=== PATIENT | male | born 1950 | race Two or more races ===

== ENCOUNTER 2023-08-20 14:39 | Emergency (ER) | payer OTHER, SELFPAY ==
--- NOTE | ~2023-08-20 | CT_ITS ---
EXAMINATION: CT HEAD WITHOUT CONTRAST CLINICAL INFORMATION: Dizziness. Evaluate for bleed or stroke. COMPARISON: None available. TECHNIQUE: Contiguous axial imaging was performed from the skull base to vertex without intravenous administration of contrast. This CT examination was performed using dose optimization techniques as appropriate, variously including the following: *Automated exposure control *Adjustment of mA and/or kV according to patient size (this includes techniques or standardized protocols for targeted exams where dose is matched to indication/reason for exam; i.e. extremities or head) *Use of iterative reconstruction technique DLP: 729 mGy-cm FINDINGS: No intracranial hemorrhage, extra-axial surface collection, focal mass effect or midline shift. Mild parenchymal volume loss with commensurate prominence of ventricles and sulci; no hydrocephalus. Atherosclerotic calcification of cavernous carotid arteries. Mild small vessel ischemic changes within supratentorial white matter. There is hypoattenuation from chronic encephalomalacia with loss of hoffman-white differentiation at the superior right parietal lobe. No evidence of an acute major vascular territory infarction. Also, there appears to be an old lacunar infarction of the left tunde. No calvarial fracture. The paranasal sinuses and mastoid air cells are well aerated. The temporomandibular joints, orbits and globes are unremarkable. The reticulation of fat within the scalp has the appearance of edema. A small focus of tissue thickening in the parietal region of the scalp could represent scarring or small hematoma secondary to prior trauma. CT/CT head/brain wo IV con IMPRESSION: * No evidence of intracranial hemorrhage or other acute intracranial pathology. * There is an old infarct of the right parietal lobe and lacunar infarct of the tunde. No evidence of an acute major vascular territory infarction.
[2023-08-20 14:48] VITALS: BP 200/98; PULSE 68; O2SAT 98
[2023-08-20 14:51] VITALS: BP 195/81; PULSE 70; RESP 14; TEMP 36.6; O2SAT 97; BMI 33.5
--- NOTE | 2023-08-20 15:58 | ECG_ITS ---
Test Reason : FALL Blood Pressure : / mmHG Vent. Rate : 066 BPM Atrial Rate : 066 BPM P-R Int : 188 ms QRS Dur : 094 ms QT Int : 440 ms P-R-T Axes : 047 -24 110 degrees QTc Int : 461 ms Normal sinus rhythm Minimal voltage criteria for LVH, may be normal variant ( Frantz product ) Inferior infarct , age undetermined T wave abnormality, consider lateral ischemia Abnormal ECG No previous ECGs available Referred By: Jose Luis Subramanian Electronically Signed By:DOMINGUEZ LINARES MD
[2023-08-20] MEDS: Meclizine HCl 25 MG TABLET PO (16:21)
[2023-08-20 17:20] VITALS: BP 183/86; PULSE 64; RESP 16; TEMP 36.8; O2SAT 97
[2023-08-20 17:42] VITALS: BP 138/82; PULSE 67; RESP 14; TEMP 36.8; O2SAT 98
[2023-08-20 17:43] LABS: MANUAL DIFF FLAG NO
--- NOTE | 2023-08-20 17:43 | ED.DIZZY ---
HPI - Dizziness General Chief Complaint: Fall Stated Complaint: FALL WITH HEAD STRIKE + THINNERS Time Seen by Provider: 08/20/23 14:48 Source: patient and EMS Mode of arrival: EMS Limitations: no limitations History of Present Illness HPI Narrative: 72-year-old male with history diabetes mellitus, hypertension, CHF, stroke (1 year prior with right hand and leg weakness) who presents emergency department for evaluation of 3 days of dizziness. Patient describes the dizziness as a room spinning sensation which is worse with position change he is also complaining of a headache which she states is intermittent. He points to his frontal area of his head when he describes the pain, the pain is a pressure-like pain which will last 10-15 minutes then go away. This morning. He states that he get out of bed, felt dizzy and fell and struck the left side of his head on the floor he denied loss of consciousness He denied fever. He states he has occasional chills. He states he has occasional cough. He denied chest pain, shortness of breath, nausea, vomiting, diarrhea, dark tarry stools or bloody stools Related Data Previous Rx's Medication Instructions Recorded meclizine 25 mg tablet (Dramamine 25 mg PO TID PRN dizziness #20 tabs 08/20/23 Less Drowsy) Allergies Allergy/AdvReac Type Severity Reaction Status Date / Time No Known Allergies Allergy Verified 08/20/23 15:56 Review of Systems Review of Systems: Yes all other systems are reviewed and are negative [facility] Past Medical History Attestation statement: The following information was validated with the patient. [facility] Narrative: Past medical history: Diabetes mellitus, hypertension, CHF, stroke when your prior with residual right hand and right leg weakness. Social history: Patient is a former smoker and stop smoking 34 years ago. He smoked for 30 years. States he stop drinking alcohol 3 years prior. Patient does not use any drugs but he is a former heroin, marijuana and cocaine user. Onset Date is defined in the Problem List Problems that require an onset date and time if occurred within 24 hrs of arrival to the ED Aortic Dissection and Rupture; Neurologic impairment; Cardiopulmonary Arrest; Endotracheal Intubation; Insertion or Replacement of Mechanical Circulatory Assist Device Social History Social History Advance Directives: No Advance Directives Information Provided: No Physical Exam Vital Signs: Vital Signs: Last Vital Signs Temp 98.2 F 08/20/23 17:42 Pulse 67 08/20/23 17:42 Resp 14 08/20/23 17:42 BP 138/82 08/20/23 17:42 Pulse Ox 98 08/20/23 17:42 O2 Del Method Room Air 08/20/23 17:42 BMI result Body Mass Index 33.5 Vital signs were normal Exam: General: Awake, alert in no distress Head: Normocephalic, atraumatic EENT: PERRL, Lids normal, sclera normal, conjunctiva normal, nose normal , ears normal, throat without erythema or exudates, lateral nystagmus Neck: Supple, no adenopathy, no trachea midline or C-spine tenderness Lung: breath sounds symmetric, no wheezing, rales or rhonchi Chest: symmetric movement, nontender Heart: regular rate and rhythm, normal S1, S2 no murmurs or rubs Abdomen: soft, non-tender, nondistended, normal bowel sounds Back: no vertebral tenderness, no CVAT Extremities: no deformities, moves all extremities symmetrically Skin: no rashes, no lesion, normal color and warmth Neuro: General: Awake, alert, oriented, normal speech, Cranial nerves: Cranial nerves 2-12 intact Strength:, patient has normal upper extremity strength and normal left lower extremity strength. He can only move right lower extremity minimal against gravity-this is old secondary to his previous stroke Cerebellar: Normal rxvtho-of-pfse-to-finger, normal rapid finger movement, heel to lobo not testable on right secondary to weakness, normal on left Psych: Pleasant, cooperative Medications Administered Discontinued Medications Generic Name Dose Route Start Last Admin Trade Name Freq PRN Reason Stop Dose Admin Meclizine HCl 25 mg 08/20/23 15:58 08/20/23 16:21 Meclizine Hcl 25 Mg Tablet PO 08/20/23 15:59 25 mg ONCE STA Administration Medical Decision Making Medical Decision Making MDM Narrative: 72-year-old male with history diabetes mellitus, hypertension, CHF, stroke (1 year prior with right hand and leg weakness) who presents emergency department for evaluation of 3 days of dizziness. Patient describes the dizziness as a room spinning sensation which is worse with position change he is also complaining of a headache which she states is intermittent. Patient did fall and strike his head this morning getting out of bed this morning. Patient's vital signs were unremarkable. Physical examination did reveal lateral nystagmus and dizziness with position change. Patient has residual right lower extremity weakness secondary to previous stroke otherwise exam was unremarkable. 18:08 My interpretation patient's laboratory evaluation as follows: CBC was normal. CMP was unremarkable except for an elevated glucose of 253. PT/INR were elevated 31.[address] scan is consistent with the patient's previous strokes Differential Diagnosis Differential Diagnoses: The differential diagnosis associated with the presentation includes Differential diagnosis includes was not limited to cerebellar stroke, vertigo, electrolyte abnormalities, anemia Admission/Observation Consideration of admission/observation: Escalation of care including admission/observation considered Lab Data MDM Lab Attestation statement: I reviewed the patient's lab results. 08/20/23 17:38 08/20/23 17:29 Labs: Lab Results 08/20/23 08/20/23 Range/Units 17:29 17:38 WBC 7.6 (4.8-10.8) X10*3/uL RBC 5.36 (4.60-5.80) X10*6/uL Hgb 14.8 (14.0-18.0) g/dl Hct 45.6 (42.0-52.0) % MCV 85.1 (80.0-98.0) fL MCH 27.6 (27.0-33.0) pg MCHC 32.5 (31.0-36.0) g/dl RDW 14.0 (11.0-16.0) % Plt Count 251 (160-400) X10*3/uL MPV 11.4 (9.4-12.4) fL Immature Gran % (Auto) 0.4 (0.0-0.4) % Neut % (Auto) 75.6 H (45-73) % Lymph % (Auto) 12.5 L (20-40) % Glenn % (Auto) 8.8 (2-11) % Eos % (Auto) 2.4 (0-4) % Baso % (Auto) 0.3 (0-2) % Lymph # (Auto) 1.0 L (1.2-4.9) X10*3/uL Glenn # (Auto) 0.7 (0.1-1.2) X10*3/uL Eos # (Auto) 0.2 (0.0-0.4) X10*3/uL Baso # (Auto) 0.0 (0.0-0.2) X10*3/uL Abs Immat Gran (auto) 0.03 (0.00-0.03) X10*3/uL Absolute Neuts (auto) 5.8 (2.0-8.3) x10*3/uL Absolute Nucleated RBC 0.000 (0.0-0.012) X10*3/uL Nucleated RBC % (auto) 0.0 (0.0-0.2) /100WBC PT 31.3 H (11.1-13.3) SEC INR 2.6 H (0.9-1.1) Sodium 136 (135-145) mmol/L Potassium 4.2 (3.3-5.1) mmol/L Chloride 105 (96-108) mmol/L Carbon Dioxide 22 (22-29) mmol/L Anion Gap 13 (12-20) BUN 18 H (9-16) mg/dL Creatinine 0.86 (0.5-1.4) mg/dL Estim Creat Clear Calc 86.2 Estimated GFR > 60 Random Glucose 253 H (60-115) mg/dL Calcium 9.1 (8.4-10.2) mg/dL Total Bilirubin 0.3 (0.0-1.0) mg/dL AST 17 (5-37) U/L ALT 18 (0-40) U/L Alkaline Phosphatase 79 (39-117) U/L Total Protein 7.0 (6.5-8.0) g/dL Albumin 3.6 (3.5-5.0) g/dL Lipase 18 (8-78) U/L Radiology Impression Discussion of test interpretation with radiology: I have reviewed the radiologist's reading. Radiologist Impression: CT head/brain wo IV con IMPRESSION: * No evidence of intracranial hemorrhage or other acute intracranial pathology. * There is an old infarct of the right parietal lobe and lacunar infarct of the tunde. No evidence of an acute major vascular territory infarction. Dictated By: Freddy Thomas MD Discharge Plan Discharge Clinical Impression: Vertigo Patient Disposition: Home, Self-Care Instructions: Vertigo (ED) Additional Instructions: The CT scan of your brain did not reveal any new stroke, bleeding in the brain or large tumors to explain your symptoms Your blood work was unremarkable except for an elevated glucose, continue to take your diabetes medicines as prescribed by your doctor Your symptoms are consistent with positional vertigo Take meclizine 25 mg pills, 1 pill 3 times a day for the next 3 days for dizziness then as needed for dizziness. ?This medication will make you sleepy. ?Do not drive or work while taking this medication. Follow-up with your doctor in 2 days. Please return to the emergency department if your symptoms get worse or if you develop any symptoms that are concerning to you. Prescriptions: New meclizine [Dramamine Less Drowsy] 25 mg tablet 25 mg PO TID PRN (Reason: dizziness) Qty: 20 0RF
--- NOTE | 2023-08-20 17:43 | MHC.EDTECH ---
PATIENT BLOOD DRAWN AND SENT TO ,VITALS TAKEN ,PATIENT FAMILY MEMBER AT BEDSIDE .
[2023-08-20 17:52] LABS: Basophils Percent Auto 0.3 % (0-2); Eosinophils Absolute Auto 0.2 X10*3/uL (0.0-0.4); Eosinophils Percent Auto 2.4 % (0-4); Hematocrit 45.6 % (42.0-52.0); Hemoglobin 14.8 g/dl (14.0-18.0); Imm Gran Abs Auto 0.03 X10*3/uL (0.00-0.03); Imm Gran Pct Auto 0.4 % (0.0-0.4); Lymphocytes Percent Auto 12.5 % (20-40); Mean Corpuscular HGB Conc 32.5 g/dl (31.0-36.0); Mean Corpuscular Hemoglobin 27.6 pg (27.0-33.0); Mean Corpuscular Volume 85.1 fL (80.0-98.0); Mean Platelet Volume 11.4 fL (9.4-12.4); Monocytes Absolute Auto 0.7 X10*3/uL (0.1-1.2); Monocytes Percent Auto 8.8 % (2-11); Neutrophils Absolute Auto 5.8 x10*3/uL (2.0-8.3); Neutrophils Percent Auto 75.6 % (45-73); Platelet Count 251 X10*3/uL (160-400); Red Blood Count 5.36 X10*6/uL (4.60-5.80); White Blood Count 7.6 X10*3/uL (4.8-10.8)
[2023-08-20 17:56] LABS: INTERNATIONAL NORM RATIO 2.6 (0.9-1.1); Prothrombin Time 31.3 SEC (11.1-13.3)
[2023-08-20 17:57] LABS: Alanine Aminotransferase 18 U/L (0-40); Albumin Level 3.6 g/dL (3.5-5.0); Alkaline Phosphatase 79 U/L (39-117); Anion Gap 13 (12-20); Aspartate Amino Transferase 17 U/L (5-37); Bilirubin Total 0.3 mg/dL (0.0-1.0); Blood Urea Nitrogen 18 mg/dL (9-16); Calcium 9.1 mg/dL (8.4-10.2); Carbon Dioxide 22 mmol/L (22-29); Chloride 105 mmol/L (96-108); Creatinine Clr Calc Pharmacy 86.2; Estimated Glomerular Filt Rate > 60; Glucose Random 253 mg/dL (60-115); Lipase 18 U/L (8-78); Potassium 4.2 mmol/L (3.3-5.1); Sodium 136 mmol/L (135-145)
[2023-08-20 18:08] LABS: Troponin-I High Sensitivity 13.3 ng/L (<3.5-35.0)
== END 2023-08-20 19:18 | disposition home or self-care (01) ==
PROVIDERS: Emergency Provider Emergency Medicine Emergency Medical Services
DX: R42 Dizziness and giddiness (principal); R94.31 Abnormal electrocardiogram [ECG] [EKG]; R51.9 Headache, unspecified; Z79.899 Other long term (current) drug therapy
CPT/HCPCS: 36415; 70450; 80053; 83690; 84484; 85025; 85610; 93005; 99284

== ENCOUNTER → 2023-08-20 15:58 | Outpatient (BNV) | payer OTHER, SELFPAY | PROVIDERS: Emergency Provider Emergency Medicine Emergency Medical Services; Visit Provider Internal Medicine Cardiovascular Disease | DX: R94.31 Abnormal electrocardiogram [ECG] [EKG] (principal) | CPT/HCPCS: 93010 ==

== ENCOUNTER 2024-08-03 03:05 | Emergency (ER) | payer OTHER, SELFPAY ==
--- NOTE | 2024-08-03 | ECG_ITS ---
Test Reason : WEAKNESS Blood Pressure : / mmHG Vent. Rate : 085 BPM Atrial Rate : 085 BPM P-R Int : 172 ms QRS Dur : 094 ms QT Int : 386 ms P-R-T Axes : 046 -43 093 degrees QTc Int : 459 ms Normal sinus rhythm Left axis deviation Inferior infarct , age undetermined Possible Anterior infarct , age undetermined T wave abnormality, consider lateral ischemia Abnormal ECG No previous ECGs available Referred By: Braxton Balderas Electronically Signed By:Yoni Butt
--- NOTE | ~2024-08-03 | CT_ITS ---
EXAMINATION: CTA NECK WITH CONTRAST (STROKE) CTA BRAIN WITH CONTRAST (STROKE) CLINICAL INFORMATION: Suspect acute stroke. Assess for major vessel occlusion. Please call report. COMPARISON: None available. TECHNIQUE: CTA of the head and neck was performed in the axial plane from the mediastinum to the skull vertex using 75 mL Omnipaque 350 intravenous contrast. Additional reformatted multiplanar images including maximum intensity projection MIP images are generated on the CT workstation. This CT examination was performed using dose optimization techniques as appropriate, variously including the following: *Automated exposure control *Adjustment of mA and/or kV according to patient size (this includes techniques or standardized protocols for targeted exams where dose is matched to indication/reason for exam; i.e. extremities or head) *Use of iterative reconstruction technique DLP: 1565 mGy-cm FINDINGS: The degree of stenosis determined by criteria similar to NASCET. Brain: There is mild cerebral volume loss with prominence of the lateral and the third ventricles. The cortical sulci are widened appropriately. The fourth ventricle and basal cisterns are normally outlined. There is mild bilateral periventricular and central white matter diminished attenuation. 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 There is no acute territorial defect, hemorrhage or midline shift. The extra-axial spaces are unremarkable. Calvarium/scalp: Intact. Maxillofacial sinuses and mastoids: Clear as visualized. Chest CTA: There is atherosclerotic plaque of the aortic arch. Bovine arch is noted. The aortic arch branch vessels are patent. The visualized upper lung [place] are clear. Neck CTA: The common carotid artery is patent. There is atherosclerotic plaque at the carotid bifurcation without significant narrowing. The internal and external carotid arteries are patent. The vertebral arteries are codominant and both patent. Brain CTA: There is atherosclerotic plaque of the distal vertebral arteries with focal areas of narrowing at both distal vertebral arteries. There is also atherosclerotic plaque of the basilar artery branches and a focal area of narrowing within the right superior cerebellar artery. The cortical following There is atherosclerotic plaque of both intracranial internal carotid arteries with mild narrowing at the right. Focal narrowing distal M1 right middle cerebral artery. There is good flow beyond the point of narrowing distal M1 posterior cerebral artery on the right. There is no evidence for aneurysm, The left middle cerebral artery and anterior cerebral arteries are patent. . CT/CT angio head neck STROKE IMPRESSION: 1. No acute intracranial pathology. 2. No evidence for aneurysm or vascular malformation. 3. Atherosclerotic plaque of both carotid bifurcations without significant narrowing. 4. Atherosclerotic plaque of the distal vertebral arteries with focal areas of narrowing. 5. There is also atherosclerotic plaque of the basilar artery branches with focal areas of narrowing. 6. Focal narrowing distal M1 right middle cerebral artery. 7. There is good flow beyond the point of narrowing. Electronically signed by: Star Lau MD 08/03/2024 06:41 AM [facility] COLLIER
--- NOTE | ~2024-08-03 | CT_ITS ---
EXAMINATION: CT HEAD WITHOUT CONTRAST CLINICAL INFORMATION: Right-sided weakness. COMPARISON: August 20, 2023 TECHNIQUE: Contiguous axial imaging was performed from the skull base to vertex without intravenous administration of contrast. This CT examination was performed using dose optimization techniques as appropriate, variously including the following: *Automated exposure control *Adjustment of mA and/or kV according to patient size (this includes techniques or standardized protocols for targeted exams where dose is matched to indication/reason for exam; i.e. extremities or head) *Use of iterative reconstruction technique DLP: 780 mGy-cm FINDINGS: There is cerebral volume loss with prominence of the lateral and the third ventricles. The cortical sulci are widened appropriately. The fourth ventricle and basal cisterns are normally outlined. There is mild bilateral periventricular and central white matter diminished attenuation. 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 There is an old left pontine lacunar infarct There is no acute territorial defect, hemorrhage or midline shift. The extra-axial spaces are unremarkable. Calvarium/scalp: Intact. Maxillofacial sinuses and mastoids: Clear as visualized. CT/CT head/brain wo IV con IMPRESSION: 1. No acute intracranial process seen. 2. 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 3. Mild cerebral volume loss with chronic small vessel ischemic changes. Electronically signed by: Star Lau MD 08/03/2024 05:09 AM O[facility]
[2024-08-03 03:11] VITALS: BP 144/77; BP 210/86; PULSE 58; PULSE 86; RESP 18; TEMP 37.2; O2SAT 92; O2SAT 95; BMI 31.1
--- NOTE | 2024-08-03 03:16 | ED_ITS ---
HPI - General Adult General Chief complaint: Weakness Stated complaint: weakness, hyperglycemic, hypertensive, polyuria Time Seen by Provider: 08/03/24 03:16 Source: patient Mode of arrival: EMS Limitations: no limitations History of Present Illness ED Provider: HPI narrative: Patient is 73 years old with history of diabetes hypertension CHF CVA with residual right-sided weakness comes here for increased weakness in the right side patient has had multiple strokes in the past few years on aspirin uses wheelchair unable to ambulate without assistance was awake at 01:30 a tried to get to the chair to go to bathroom unable to stand up and felt more weak on the right side and slumped down no headache no other significant injuries no fever no chills no upper respiratory symptoms patient feels his right side is more weak than before Related Data Previous Rx's ?Medication ?Instructions ?Recorded meclizine 25 mg tablet (Dramamine 25 mg PO TID PRN dizziness #20 tabs 08/20/23 Less Drowsy) clopidogrel 75 mg tablet (Plavix) 75 mg PO DAILY #30 tabs 08/03/24 Allergies Allergy/AdvReac Type Severity Reaction Status Date / Time No Known Allergies Allergy Verified 08/03/24 03:16 Review of Systems 2 Review of Systems: Yes all other systems are reviewed and are negative [facility] Social History Social History Smoked in Last 30 Days: No Use of substances other than those prescribed or required for medical reasons: No Advance Directives: No Advance Directives Information Provided: Yes Do you have a plan to hurt others: No Plan Physical Exam ED Vital Signs: Vital Signs - 24 hr 08/03/24 03:11 Temperature 98.9 F Pulse Rate 86 Respiratory Rate 18 Blood Pressure 144/77 H Pulse Oximetry 92 Oxygen Delivery Method Room Air BMI result Body Mass Index 31.1 Appearance: Alert. Oriented X3. No acute distress. Eyes: PERRLA, No Nystagmus ENT: Pharynx normal. Oral Mucosa moist Neck: Normal inspection. Neck supple. CVS: Normal heart rate and rhythm. Pulses normal. Respiratory: No respiratory distress. Equal air entry bilateral, no wheezing/rales/rhonchi Abdomen: Soft and nontender. Bowel sounds are present, no mass palpable, no CVA tenderness Skin: Skin warm and dry. Normal skin color. Normal skin turgor. Extremities: No lower extremity edema. No calf tenderness Neuro: Oriented X 3. Right residual weakness NIH Stroke Scale Internal: Initial- Upon Arrival Level of Consciousness: Alert Level of Consciousness Questions: Answers both questions correctly Level of Consciousness Commands: Performs both tasks correctly Best Gaze: Normal Visual: No visual loss Facial Palsy: Normal Motor Arm (Right): No drift Motor Arm (Left): No drift Motor Leg (Right): Drift Motor Leg (Left): No drift Limb Ataxia: Absent Sensory: Normal Best Language: No aphasia Dysarthia: Normal Extinction and Inattention: No abnormality Score: 1 Medications Administered Discontinued Medications Generic Name Dose Route Start Last Admin Trade Name Freq PRN Reason Stop Dose Admin Iohexol 75 ml 08/03/24 05:19 08/03/24 05:19 Iohexol 350 Mg/Ml 100 Ml Infus..Btl IV 08/03/24 05:20 75 ml ONCE ONE Administration Medical Decision Making Medical Decision Making [facility] Narrative: Patient with multiple lacunar infarcts bilateral with old right parietal infarct in left pontine infarct came for increased weakness of the right side in the ER no significant weakness noticed patient was able to pivot patient lives alone at home and able to manage and has family support patient is on [address] scan of the head negative for acute CTA head and neck showed no new acute infarct was seen EKG without any cardiac arrhythmias will add clopidogrel along with aspirin for dual therapy advised to follow up with neurologist/PCP Differential Diagnosis Differential Diagnoses: The differential diagnosis associated with the presentation includes CVA/TIAs/generalized weakness Admission/Observation Consideration of admission/observation: Escalation of care including admission/observation considered Lab Data [facility] Lab Attestation statement: I reviewed the patient's lab results. 08/03/24 03:23 08/03/24 03:23 Labs: Lab Results 08/03/24 08/03/24 08/03/24 Range/Units 03:22 03:23 03:29 WBC 8.5 (4.8-10.8) X10*3/uL RBC 4.77 (4.60-5.80) X10*6/uL Hgb 13.3 L (14.0-18.0) g/dl Hct 40.4 L (42.0-52.0) % MCV 84.7 (80.0-98.0) fL MCH 27.9 (27.0-33.0) pg MCHC 32.9 (31.0-36.0) g/dl RDW 13.3 (11.0-16.0) % Plt Count 241 (160-400) X10*3/uL MPV 10.2 (9.4-12.4) fL Immature Gran % (Auto) 0.2 (0.0-0.4) % Neut % (Auto) 85.9 H (45-73) % Lymph % (Auto) 4.9 L (20-40) % [place] % (Auto) 7.5 (2-11) % Eos % (Auto) 1.4 (0-4) % Baso % (Auto) 0.1 (0-2) % Lymph # (Auto) 0.4 L (1.2-4.9) X10*3/uL [place] # (Auto) 0.6 (0.1-1.2) X10*3/uL Eos # (Auto) 0.1 (0.0-0.4) X10*3/uL Baso # (Auto) 0.0 (0.0-0.2) X10*3/uL Abs Immat Gran (auto) 0.02 (0.00-0.03) X10*3/uL Absolute Neuts (auto) 7.3 (2.0-8.3) x10*3/uL Absolute Nucleated RBC 0.000 (0.0-0.012) X10*3/uL Nucleated RBC % (auto) 0.0 (0.0-0.2) /100WBC PT 12.0 (10.9-12.4) SEC INR 1.0 (0.9-1.1) Sodium 136 (135-145) mmol/L Potassium 3.8 (3.3-5.1) mmol/L Chloride 104 (96-108) mmol/L Carbon Dioxide 27 (22-29) mmol/L Anion Gap 9 L (12-20) BUN 31 H (9-16) mg/dL Creatinine 1.38 (0.5-1.4) mg/dL Estim Creat Clear Calc 51.0 Estimated GFR 51 POC Glucose 253 H (60-115) mg/dL Random Glucose 259 H (60-115) mg/dL Calcium 9.1 (8.4-10.2) mg/dL Total Bilirubin 0.4 (0.0-1.0) mg/dL AST 16 (5-37) U/L ALT 15 (0-40) U/L Alkaline Phosphatase 75 (39-117) U/L Troponin I High Sens 20.2 D (<3.5-35.0) ng/L Total Protein 7.0 (6.5-8.0) g/dL Albumin 3.7 (3.5-5.0) g/dL Influenza Type A (PCR) (Negative) Influenza Type B (PCR) (Negative) RSV RNA Qual (PCR) (Negative) SARS-CoV-2 RNA (RT-PCR) (Negative) 08/03/24 Range/Units 03:30 WBC (4.8-10.8) X10*3/uL RBC (4.60-5.80) X10*6/uL Hgb (14.0-18.0) g/dl Hct (42.0-52.0) % MCV (80.0-98.0) fL MCH (27.0-33.0) pg MCHC (31.0-36.0) g/dl RDW (11.0-16.0) % Plt Count (160-400) X10*3/uL MPV (9.4-12.4) fL Immature Gran % (Auto) (0.0-0.4) % Neut % (Auto) (45-73) % Lymph % (Auto) (20-40) % [place] % (Auto) (2-11) % Eos % (Auto) (0-4) % Baso % (Auto) (0-2) % Lymph # (Auto) (1.2-4.9) X10*3/uL [place] # (Auto) (0.1-1.2) X10*3/uL Eos # (Auto) (0.0-0.4) X10*3/uL Baso # (Auto) (0.0-0.2) X10*3/uL Abs Immat Gran (auto) (0.00-0.03) X10*3/uL Absolute Neuts (auto) (2.0-8.3) x10*3/uL Absolute Nucleated RBC (0.0-0.012) X10*3/uL Nucleated RBC % (auto) (0.0-0.2) /100WBC PT (10.9-12.4) SEC INR (0.9-1.1) Sodium (135-145) mmol/L Potassium (3.3-5.1) mmol/L Chloride (96-108) mmol/L Carbon Dioxide (22-29) mmol/L Anion Gap (12-20) BUN (9-16) mg/dL Creatinine (0.5-1.4) mg/dL Estim Creat Clear Calc Estimated GFR POC Glucose (60-115) mg/dL Random Glucose (60-115) mg/dL Calcium (8.4-10.2) mg/dL Total Bilirubin (0.0-1.0) mg/dL AST (5-37) U/L ALT (0-40) U/L Alkaline Phosphatase (39-117) U/L Troponin I High Sens (<3.5-35.0) ng/L Total Protein (6.5-8.0) g/dL Albumin (3.5-5.0) g/dL Influenza Type A (PCR) NEGATIVE (Negative) Influenza Type B (PCR) NEGATIVE (Negative) RSV RNA Qual (PCR) NEGATIVE (Negative) SARS-CoV-2 RNA (RT-PCR) NEGATIVE (Negative) Independent Interpretation I performed an independent interpretation of an: CT Scan Radiology Impression Discussion of test interpretation with radiology: I discussed test interpretation with the radiologist and I have reviewed the radiologist's reading. Radiologist Impression: [place] [id number] CT Scan Report Signed Patient: Arvin Encarnacion MR#: [id number] : 1950 Acct:[id number] Age/Sex: 73 / M ADM Date: 08/03/24 Loc: HO.ED Attending Dr: Ordering Physician: Braxton Balderas MD Date of Service: 08/03/24 Procedure(s): CT head/brain wo IV con Accession Number(s): [id number] cc: Braxton Balderas MD~ EXAMINATION: CT HEAD WITHOUT CONTRAST CLINICAL INFORMATION: Right-sided weakness. COMPARISON: August 20, 2023 TECHNIQUE: Contiguous axial imaging was performed from the skull base to vertex without intravenous administration of contrast. This CT examination was performed using dose optimization techniques as appropriate, variously including the following: *Automated exposure control *Adjustment of mA and/or kV according to patient size (this includes techniques or standardized protocols for targeted exams where dose is matched to indication/reason for exam; i.e. extremities or head) *Use of iterative reconstruction technique DLP: 780 mGy-cm FINDINGS: There is cerebral volume loss with prominence of the lateral and the third ventricles. The cortical sulci are widened appropriately. The fourth ventricle and basal cisterns are normally outlined. There is mild bilateral periventricular and central white matter diminished attenuation. 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 There is an old left pontine lacunar infarct There is no acute territorial defect, hemorrhage or midline shift. The extra-axial spaces are unremarkable. Calvarium/scalp: Intact. Maxillofacial sinuses and mastoids: Clear as visualized. CT/CT head/brain wo IV con IMPRESSION: 1. No acute intracranial process seen. 2. 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 3. Mild cerebral volume loss with chronic small vessel ischemic changes. Electronically signed by: Star Lua MD 08/03/2024 05:09 AM [facility] [place], [place] Discharge Plan Discharge Clinical Impression: TIA (transient ischemic attack) Patient Disposition: Home, Self-Care Instructions: Transient Ischemic Attack (ED) Additional Instructions: You have multiple small strokes no new stroke was seen on the CT scan no blockage was seen Continue 81 mg aspirin Start taking clopidogrel 75 mg daily Follow up with neurologist and PCP Care and cautions as advised Prescriptions: New clopidogrel [Plavix] 75 mg tablet 75 mg PO DAILY Qty: 30 0RF No Action meclizine [Dramamine Less Drowsy] 25 mg tablet 25 mg PO TID PRN (Reason: dizziness) Qty: 20 0RF Referrals: Dora Meyer MD [Physician] - 1 week Print Language: Colombian
--- NOTE | 2024-08-03 03:25 | PC.NURSE ---
pt biba from home, woke up approx 0250 felt weak and lowered himself to ground. -headstrike/loc/thinners. hx cva with no deficits. states previous strokes started with same sx. some weakness noted of RUE & RLE. MD Balderas made aware of ?stroke alert. Niece on phone who is involved in pts medical care, states pt has known R. side deficits and is receiving PT to help regain strength/ambulation, currently supposed to be wheelchair bound and has [employer] services for assistance at home. iv established. labs and ekg obtained. pt placed on cardiac monitoring. vitals as documented. pt is axox4 speaking full clear sentences. no slurred speech/aphasia noted at this time.
[2024-08-03 03:27] LABS: Basophils Percent Auto 0.1 % (0-2); Eosinophils Absolute Auto 0.1 X10*3/uL (0.0-0.4); Eosinophils Percent Auto 1.4 % (0-4); Hematocrit 40.4 % (42.0-52.0); Hemoglobin 13.3 g/dl (14.0-18.0); Imm Gran Abs Auto 0.02 X10*3/uL (0.00-0.03); Imm Gran Pct Auto 0.2 % (0.0-0.4); Lymphocytes Absolute Auto 0.4 X10*3/uL (1.2-4.9); Lymphocytes Percent Auto 4.9 % (20-40); MANUAL DIFF FLAG NO; Mean Corpuscular HGB Conc 32.9 g/dl (31.0-36.0); Mean Corpuscular Hemoglobin 27.9 pg (27.0-33.0); Mean Corpuscular Volume 84.7 fL (80.0-98.0); Mean Platelet Volume 10.2 fL (9.4-12.4); Monocytes Absolute Auto 0.6 X10*3/uL (0.1-1.2); Monocytes Percent Auto 7.5 % (2-11); Neutrophils Absolute Auto 7.3 x10*3/uL (2.0-8.3); Neutrophils Percent Auto 85.9 % (45-73); Platelet Count 241 X10*3/uL (160-400); Red Blood Count 4.77 X10*6/uL (4.60-5.80); Red Cell Distribution Width 13.3 % (11.0-16.0); White Blood Count 8.5 X10*3/uL (4.8-10.8)
[2024-08-03 03:34] LABS: Glucose, Whole Blood 253 mg/dL (60-115)
[2024-08-03 03:42] LABS: Alanine Aminotransferase 15 U/L (0-40); Albumin Level 3.7 g/dL (3.5-5.0); Alkaline Phosphatase 75 U/L (39-117); Anion Gap 9 (12-20); Aspartate Amino Transferase 16 U/L (5-37); Bilirubin Total 0.4 mg/dL (0.0-1.0); Blood Urea Nitrogen 31 mg/dL (9-16); Calcium 9.1 mg/dL (8.4-10.2); Carbon Dioxide 27 mmol/L (22-29); Chloride 104 mmol/L (96-108); Estimated Glomerular Filt Rate 51; Glucose Random 259 mg/dL (60-115); Potassium 3.8 mmol/L (3.3-5.1); Sodium 136 mmol/L (135-145)
[2024-08-03 03:47] LABS: Troponin-I High Sensitivity 20.2 ng/L (<3.5-35.0)
[2024-08-03 04:10] LABS: Influenza A PCR NEGATIVE (Negative); Influenza B PCR NEGATIVE (Negative); Resp Syncy Virus RNA Qual PCR NEGATIVE (Negative); SARS COV2 PCR INHOUSE NEGATIVE (Negative)
[2024-08-03] MEDS: iohexoL 350 MG/ML 100 ML INFUS..BTL 75 ML IV (05:19)
[2024-08-03 06:02] VITALS: BP 144/69; PULSE 79; RESP 16; TEMP 37.2; O2SAT 96
[2024-08-03] MEDS: Clopidogrel Bisulfate 75 MG TABLET PO (06:02)
== END 2024-08-03 06:05 | disposition home or self-care (01) ==
PROVIDERS: Emergency Provider Internal Medicine
DX: I69.331 Monoplegia of upper limb following cerebral infarction affecting right dominant side (principal); R53.1 Weakness; R29.701 NIHSS score 1; E11.9 Type 2 diabetes mellitus without complications; I10 Essential (primary) hypertension; Z03.818 Encounter for observation for suspected exposure to other biological agents ruled out; Z79.82 Long term (current) use of aspirin
CPT/HCPCS: 0241U; 36415; 70450; 70496; 70498; 80053; 82947; 84484; 85025; 85610; 93005; 99284; 99285; Q9967

== ENCOUNTER → 2024-08-03 03:17 | Outpatient (BNV) | payer OTHER, SELFPAY | PROVIDERS: Emergency Provider Internal Medicine; Visit Provider Internal Medicine Cardiovascular Disease | DX: R94.31 Abnormal electrocardiogram [ECG] [EKG] (principal) | CPT/HCPCS: 93010 ==

== ENCOUNTER → 2025-08-08 06:05 | Outpatient (BNV) | payer OTHER, SELFPAY | PROVIDERS: Emergency Provider Emergency Medicine Emergency Medical Services; Visit Provider Radiology Diagnostic Radiology | DX: M50.30 Other cervical disc degeneration, unspecified cervical region (principal); R29.6 Repeated falls; R05.9 Cough, unspecified; R50.9 Fever, unspecified | CPT/HCPCS: 70450; 71045; 72125 ==

== ENCOUNTER → 2025-08-08 10:09 | Outpatient (BNV) | payer OTHER, SELFPAY | PROVIDERS: Admitting Provider Hospitalist; Emergency Provider Emergency Medicine Emergency Medical Services; Visit Provider Internal Medicine | DX: I49.3 Ventricular premature depolarization (principal); I25.2 Old myocardial infarction | CPT/HCPCS: 93010 ==

== ENCOUNTER → 2025-08-08 11:08 | Outpatient (BNV) | payer OTHER, SELFPAY | PROVIDERS: Admitting Provider Hospitalist; Emergency Provider Emergency Medicine Emergency Medical Services; Visit Provider Hospitalist | DX: J10.1 Influenza due to other identified influenza virus with other respiratory manifestations (principal) | CPT/HCPCS: 99233 ==

== ENCOUNTER → 2025-08-08 11:08 | Outpatient (BNV) | payer OTHER, SELFPAY | PROVIDERS: Admitting Provider Hospitalist; Emergency Provider Emergency Medicine Emergency Medical Services; Visit Provider Internal Medicine Hypertension Specialist | DX: N28.9 Disorder of kidney and ureter, unspecified (principal) | CPT/HCPCS: 99232 ==

== ENCOUNTER → 2025-08-08 11:08 | Outpatient (BNV) | payer OTHER, SELFPAY | PROVIDERS: Admitting Provider Hospitalist; Emergency Provider Emergency Medicine Emergency Medical Services; Visit Provider Internal Medicine Pulmonary Disease | DX: J96.01 Acute respiratory failure with hypoxia (principal); J10.1 Influenza due to other identified influenza virus with other respiratory manifestations; K81.9 Cholecystitis, unspecified; N28.9 Disorder of kidney and ureter, unspecified; R78.81 Bacteremia; B95.2 Enterococcus as the cause of diseases classified elsewhere; N39.0 Urinary tract infection, site not specified; E11.9 Type 2 diabetes mellitus without complications | CPT/HCPCS: 99291 ==

== ENCOUNTER → 2025-08-08 11:08 | Outpatient (BNV) | payer OTHER, SELFPAY | PROVIDERS: Admitting Provider Hospitalist; Emergency Provider Emergency Medicine Emergency Medical Services; Visit Provider Nurse Practitioner Family | DX: A41.9 Sepsis, unspecified organism (principal); R65.21 Severe sepsis with septic shock; J18.9 Pneumonia, unspecified organism; J10.1 Influenza due to other identified influenza virus with other respiratory manifestations; K81.9 Cholecystitis, unspecified; N28.9 Disorder of kidney and ureter, unspecified | CPT/HCPCS: 99291; 99499 ==

== ENCOUNTER → 2025-08-08 11:08 | Outpatient (BNV) | payer OTHER, SELFPAY | PROVIDERS: Admitting Provider Hospitalist; Emergency Provider Emergency Medicine Emergency Medical Services; Visit Provider Internal Medicine | DX: K81.9 Cholecystitis, unspecified (principal); J10.1 Influenza due to other identified influenza virus with other respiratory manifestations; A41.9 Sepsis, unspecified organism; R65.21 Severe sepsis with septic shock | CPT/HCPCS: 99222 ==